=== PATIENT | male | born 1995 | race Hispanic/Latino ===

== ENCOUNTER 2017-10-21 18:28 | Emergency (ER) | payer MEDICAID ==
[2017-10-21 19:14] VITALS: BP 158/84; PULSE 96; RESP 20; TEMP 98.1; O2SAT 98
--- NOTE | 2017-10-21 20:14 | C.PDOC ---
Time Seen by Provider: 10/21/17 19:16 Chief Complaint (Nursing): Flu-like Symptoms Past Medical History Vital Signs: Last Vital Signs Temp 98.1 F 10/21/17 19:09 Pulse 96 H 10/21/17 19:09 Resp 20 10/21/17 19:09 BP 158/84 H 10/21/17 19:09 Pulse Ox 98 10/21/17 19:09 - Medical History PMH: Anxiety - Social History Hx Alcohol Use: No Hx Substance Use: No - Immunization History Hx Influenza Vaccination: No ED Course And Treatment O2 Sat by Pulse Oximetry: 98 Disposition - Disposition
--- NOTE | 2017-10-21 20:26 | C.PDOC ---
History Of Present Illness 22 y/o male c/o cold symptoms for 3-4 days. cough. sore throat, body aches and subjective fevers. pt also c/o feeling anxious, sts he was treated for panic attacks in the recent past with xanax, ([facility] pt [facility] rx of 20 tabs xanax 0.5 mg on Aug 14, 2017) though he didn't like how sedating it was, and no longer taking this. pt denies si, hi, and ah. Time Seen by Provider: 10/21/17 19:16 Chief Complaint (Nursing): Flu-like Symptoms Past Medical History Vital Signs: Last Vital Signs Temp 98.1 F 10/21/17 19:09 Pulse 96 H 10/21/17 19:09 Resp 20 10/21/17 19:09 BP 158/84 H 10/21/17 19:09 Pulse Ox 98 10/21/17 20:14 - Medical History PMH: Anxiety - Social History Hx Alcohol Use: No Hx Substance Use: No - Immunization History Hx Influenza Vaccination: No ED Course And Treatment O2 Sat by Pulse Oximetry: 98 Medical Decision Making Medical Decision Making: pt with uri like symptoms, rapid strep negative. pt requesting rzx of xanax, told we don't prescribe that medication from the ED, that he needs to see a psychiatrist and information about [facility] will be given on discharge. Recommend Benadryl at bedtime for now. Disposition Counseled Patient/Family Regarding: Studies Performed, Diagnosis, Need For Followup - Disposition Referrals: [facility] [place] [Outside] [facility] [Outside] Disposition: HOME/ ROUTINE Disposition Time: 20:29 Condition: STABLE Additional Instructions: Please follow up with psychiatrist for your anxiety as soon as possible. Please check if there is a medical clinic at your [facility]. Benadryl at bedtime will help you sleep; do not take at the same time as Nyquil. Take Tylenol or Motrin for throat pain, body aches. Follow up in medical clinic in a few leelee or with your own doctor. Prescriptions: DiphenhydrAMINE [Benadryl] 25 mg PO HS #20 cap Instructions: Upper Respiratory Infection (ED), Anxiety (ED) Forms: [facility] (Arabic), General Discharge Instructions - Clinical Impression Clinical Impression: Upper respiratory infection, Anxiety
== END 2017-10-21 20:38 | disposition home or self-care (01) ==
LOC: C.ER 18:28
DX: J06.9 Acute upper respiratory infection, unspecified (principal); F41.9 Anxiety disorder, unspecified